=== PATIENT | male | born 1975 | race African-American/Black ===

== ENCOUNTER 2022-04-30 18:19 | Emergency (ER) | payer MEDICAID ==
[~2022-04-30] VITALS: Ht 175.3 cm; Wt 87.7 kg
[2022-04-30] MEDS ORDERED: ALB0.5UD IH (20:14)
[2022-04-30 20:15] LABS: BASOPHILS % (AUTO) 0.2 % (0-1); EOSINOPHILS # (AUTO) 0.1 X10'3 (0-0.9); EOSINOPHILS % (AUTO) 1.8 % (0-6); HEMATOCRIT 43.5 % (42.0-52.0); HEMOGLOBIN 14.7 g/dl (14.0-17.9); LYMPHOCYTES # (AUTO) 0.4 X10'3 (1.1-4.8); LYMPHOCYTES % (AUTO) 5.5 % (21-51); MEAN CORPUSCULAR HEMOGLOBIN 29.7 PG (27.0-31.0); MEAN CORPUSCULAR HGB CONC 33.8 g/dL (33.0-36.5); MEAN CORPUSCULAR VOLUME 87.9 FL (78-98); MEAN PLATELET VOLUME 8.8 FL (7.4-10.4); MONOCYTES # (AUTO) 1.2 X10'3 (0-0.9); MONOCYTES % (AUTO) 15.5 % (2-12); NEUTROPHILS # (AUTO) 5.8 X10'3 (1.8-7.7); PLATELET COUNT 236 X10'3 (140-440); RED BLOOD COUNT 4.95 X10'6 (4.70-6.10); RED CELL DISTRIBUTION WIDTH 13.7 % (11.5-14.5); WHITE BLOOD COUNT 7.5 X10'3 (4.5-11.0)
[2022-04-30 20:34] LABS: ALANINE AMINOTRANSFERASE 32 U/L (12-78); ALBUMIN 3.6 G/DL (3.4-5.0); ALBUMIN/GLOBULIN RATIO 0.9 (1.1-1.5); ALKALINE PHOSPHATASE 104 IU/L (46-116); ANION GAP 9 (8-16); ASPARTATE AMINO TRANSFERASE 25 U/L (10-37); BILIRUBIN,TOTAL 0.2 MG/DL (0.1-1.0); BLOOD UREA NITROGEN 12 MG/DL (7-18); BUN/CREATININE RATIO 8.1 (5.4-32.0); CALCIUM 8.5 MG/DL (8.5-10.1); CHLORIDE 105 MMOL/L (99-107); CREATININE 1.49 MG/DL (0.60-1.10); GLUCOSE 101 MG/DL (70-104); POTASSIUM 3.8 MMOL/L (3.5-5.1); SODIUM 140 MMOL/L (135-145); TOTAL CARBON DIOXIDE 25.6 MMOL/L (24-32); TOTAL PROTEIN 7.6 G/DL (6.4-8.2); eGFR 51 ML/MIN
[2022-04-30 20:53] LABS: C-REACTIVE PROTEIN 0.85 MG/DL (0.0-0.5)
[2022-04-30 20:55] LABS: D-DIMER 0.25 MG/L FEU (0-0.50)
[2022-04-30 21:10] LABS: CLARITY,URINE CLEAR (Clear); COLOR,URINE YELLOW (Yellow); GLUCOSE, URINE NEGATIVE (Neg); KETONES,URINE TRACE mg/dl (Neg); LEUKOCYTE ESTERASE ,URINE NEGATIVE (Neg); NITRITES, URINE NEGATIVE (Neg); OCCULT BLOOD,URINE NEGATIVE (Neg); PH,URINE 5.5 (4.8-8.0); PROTEIN,URINE NEGATIVE (Neg); UROBILINOGEN,URINE 0.2 E.U/dL (0.2-1.0)
[2022-04-30] MEDS ORDERED: albuterol 2.5 MG/3 ML nebule NEB ONE (21:20)
[2022-04-30 21:22] LABS: UA COLLECTION TYPE CLN CATCH MIDSTREAM
[2022-04-30] MEDS ORDERED: acetaminophen 325mg tablet PO ONE (22:30)
[2022-04-30] MEDS ORDERED: BEBTELOVIMAB 175 MG/2 ML VIAL IV ONE (22:45)
[2022-04-30] MEDS ORDERED: dexamethasone 4mg tablet PO ONE (22:45)
[2022-05-01] MEDS ORDERED: DEXA6TAB6 PO (00:10)
[2022-05-01 01:18] VITALS: BP 103/65
== END 2022-05-01 01:20 | disposition home or self-care (01) ==
LOC: ER 18:22
DX: U07.1 COVID-19 (principal); B34.9 Viral infection, unspecified; R09.02 Hypoxemia; J45.901 Unspecified asthma with (acute) exacerbation; J45.909 Unspecified asthma, uncomplicated; F17.200 Nicotine dependence, unspecified, uncomplicated; Z88.0 Allergy status to penicillin
CPT/HCPCS: 36415; 71045; 80053; 81003; 84145; 85025; 85379; 86140; 87635; 94640; 99285; C9803; M0222; Q0222; 94760

== ENCOUNTER 2022-11-15 14:13 | Emergency (ER) | payer MEDICAID ==
[~2022-11-15] VITALS: Ht 172.7 cm; Wt 92.3 kg
[~2022-11-15 14:13] MED LIST: ALB0.5UD IH; DEXA6TAB6 PO
[2022-11-15 17:21] VITALS: BP 126/88
--- NOTE | 2022-11-15 17:24 | NUR ---
Patient overall general impression is mild discomfort skin is pink, warm, dry. Orientation is normal GCS 15.
[2022-11-15] MEDS ORDERED: dexamethasone sod phosphate 10mg/ml inj IV STA (17:49)
[2022-11-15] MEDS ORDERED: dexamethasone sod phosphate 10mg/ml inj PO STA (18:18)
[2022-11-15] MEDS ORDERED: DOXYCYCLINE 100MG CAPSULE PO STA (19:12)
[2022-11-15] MEDS ORDERED: ipratropium/albuterol 3ml nebule NEB ONE (19:15)
[2022-11-15] MEDS ORDERED: ALBU6.7H14 INH (19:15)
[2022-11-15] MEDS ORDERED: azithromycin 250mg tablet PO ONE (19:15)
[2022-11-15] MEDS ORDERED: AZIT250T PO (19:15)
[2022-11-15] MEDS ORDERED: DOXY100C76 PO (19:15)
[2022-11-15] MEDS ORDERED: PRED20TA PO (19:15)
[2022-11-15] MEDS ORDERED: albuterol 2.5 MG/3 ML nebule CONTNEB PRN (20:20)
== END 2022-11-15 21:45 | disposition home or self-care (01) ==
LOC: ER 14:13
DX: J45.901 Unspecified asthma with (acute) exacerbation (principal); Z20.822 Contact with and (suspected) exposure to COVID-19; Z87.891 Personal history of nicotine dependence; Z72.89 Other problems related to lifestyle; Z88.0 Allergy status to penicillin; Z79.899 Other long term (current) drug therapy
CPT/HCPCS: 71045; 87635; 94640; 94644; 99285; C9803; J1100; 94760; A7015

== ENCOUNTER 2023-08-22 17:58 | Emergency (ER) | payer MEDICAID ==
[~2023-08-22] VITALS: Ht 172.7 cm; Wt 90.3 kg
[~2023-08-22 17:58] MED LIST changes: +ALBU6.7H14 INH
[2023-08-22] MEDS ORDERED: ipratropium/albuterol 3ml nebule NEB ONE (18:15)
[2023-08-22] MEDS ORDERED: acetaminophen 325mg tablet PO ONE (18:20)
[2023-08-22 18:39] VITALS: PULSE 95; RESP 20; O2SAT 95
[2023-08-22 18:46] VITALS: PULSE 93; RESP 18; O2SAT 99
[2023-08-22] MEDS ORDERED: dexamethasone sod phosphate 10mg/ml inj PO STA ×2 (21:19→21:45)
[2023-08-22] MEDS ORDERED: ALBU8HFA PO (21:49)
[2023-08-22] MEDS ORDERED: PRED20TA PO (21:49)
[2023-08-22 22:13] VITALS: BP 129/86; PULSE 94; RESP 18; TEMP 100.4; O2SAT 96
== END 2023-08-22 22:17 | disposition home or self-care (01) ==
LOC: ER 17:58
DX: J45.909 Unspecified asthma, uncomplicated (principal); Z20.822 Contact with and (suspected) exposure to COVID-19; J06.9 Acute upper respiratory infection, unspecified
CPT/HCPCS: 36415; 71045; 87811; 94640; 99284; J1100; 94760

== ENCOUNTER 2024-10-13 09:49 | Emergency (ER) | payer MEDICAID ==
[~2024-10-13] VITALS: Ht 172.7 cm; Wt 92.6 kg
[2024-10-13] MEDS: normal saline 1000ml 1,000 ML IV ONE (10:30)
[2024-10-13] MEDS: dexamethasone sod phosphate 10mg/ml inj IV ONE (10:30)
[2024-10-13] MEDS: ipratropium/albuterol 3ml nebule NEB ONE (11:22)
[2024-10-13 11:26] VITALS: PULSE 107; RESP 22; O2SAT 96
[2024-10-13 11:33] VITALS: PULSE 104; RESP 20; O2SAT 100
[2024-10-13] MEDS ORDERED: PRED20TA PO (11:59)
[2024-10-13 12:05] VITALS: BP 113/67; PULSE 105; RESP 18; TEMP 100; O2SAT 97
== END 2024-10-13 12:14 | disposition home or self-care (01) ==
LOC: ER 09:50
DX: J45.901 Unspecified asthma with (acute) exacerbation (principal); Z88.0 Allergy status to penicillin; Z79.899 Other long term (current) drug therapy; Z72.89 Other problems related to lifestyle; Z20.822 Contact with and (suspected) exposure to COVID-19
CPT/HCPCS: 36415; 71046; 87502; 87503; 87811; 94640; 96361; 96374; 99284; J1100; J7030; 94760